=== PATIENT | male | born 1960 | race Caucasian/White ===

== ENCOUNTER → 2016-11-10 | Outpatient (CLI) | payer OTHER, SELFPAY ==
[~2016-11-10] MED LIST: FISH OIL 10001000 MG PO; IMDUR ER TAB 3030 MG PO; LIPITOR80 MG PO; LOSARTAN POTASS50 MG PO; METFORMIN HCL500 MG PO; METOPROLOL SUCC25 MG PO; NITROSTAT 0.40.4 MG SL; NORCO 5-325 TA1 EACH PO; OMEPRAZOLE40 MG PO; TRAZODONE HCL50 MG PO; TRICOR 145 MG145 MG PO; ZANTAC150 MG PO
== END ==
LOC: US 08:59
DX: R79.89 Other specified abnormal findings of blood chemistry (principal); K76.0 Fatty (change of) liver, not elsewhere classified
CPT/HCPCS: 76705

== ENCOUNTER 2021-08-03 01:54 | Inpatient (IN) | payer OTHER ==
[~2021-08-03] VITALS: Ht 180.3 cm; Wt 86.2 kg
[~2021-08-03 01:54] MED LIST changes: +COZAAR50 MG PO; +ECOTRIN81 MG PO; +GLUCOTROL5 MG PO; +LANTUS100 UNIT/1 SL; +LOPRESSOR 25 MG25 MG PO; +MOBIC7.5 MG PO; +NIACIN ER500 MG PO; +OMEPRAZOLE20 M1 PO; +PLAVIX 75 MG TA75 MG PO; +VASCEPA1 GM PO
[2021-08-03 02:20] LABS: HEMOGLOBIN 14.1 gm/dl (14.0-17.5); RED BLOOD COUNT 4.45 M/UL (4.20-5.50); WHITE BLOOD COUNT 12.9 K/UL (4.5-11.0)
[2021-08-03 02:44] LABS: BUN/CREATININE RATIO 13 (0-10)
[2021-08-03] MEDS ORDERED: ATORVASTATIN CA80 MG PO (07:52)
[2021-08-03] MEDS ORDERED: FENOFIBRATE160 MG PO (07:52)
[2021-08-03] MEDS ORDERED: METFORMIN HCL500 M2 PO (07:57)
[2021-08-03] MEDS ORDERED: MIRTAZAPINE7.5 MG PO ×2 (08:38→08:42)
[2021-08-03] MEDS ORDERED: AUGMENTIN 875-1 EACH PO ×2 (08:38→08:39)
[2021-08-03] MEDS ORDERED: PIOGLITAZONE HC45 MG PO (11:50)
[2021-08-03] MEDS ORDERED: TIZANIDINE HCL2 MG PO (11:51)
[2021-08-03] MEDS ORDERED: FARXIGA10 MG PO (11:53)
[2021-08-04 08:15] LABS: BUN/CREATININE RATIO 15 (0-10)
[2021-08-04 08:25] LABS: HEMOGLOBIN 13.4 gm/dl (14.0-17.5); RED BLOOD COUNT 4.34 M/UL (4.20-5.50); WHITE BLOOD COUNT 14.1 K/UL (4.5-11.0)
== END 2021-08-04 17:44 | disposition home or self-care (01) | DRG 440 ==
LOC: ER1 01:54 → M/S 08:51 → CDU 08:51 → M/S 19:01
PROVIDERS: Physician Assistant Medical; ADMIT Internal Medicine
DX: K85.90 Acute pancreatitis without necrosis or infection, unspecified (principal); I25.10 Atherosclerotic heart disease of native coronary artery without angina pectoris; Z20.822 Contact with and (suspected) exposure to COVID-19; E11.9 Type 2 diabetes mellitus without complications; E78.5 Hyperlipidemia, unspecified; I11.9 Hypertensive heart disease without heart failure; K52.9 Noninfective gastroenteritis and colitis, unspecified; K52.89 Other specified noninfective gastroenteritis and colitis; Z79.82 Long term (current) use of aspirin; Z79.4 Long term (current) use of insulin; Z90.49 Acquired absence of other specified parts of digestive tract; Z82.49 Family history of ischemic heart disease and other diseases of the circulatory system; Z80.0 Family history of malignant neoplasm of digestive organs; Z95.5 Presence of coronary angioplasty implant and graft
CPT/HCPCS: 36415; 71045; 80048; 80053; 80061; 82550; 82553; 82962; 83690; 83735; 83874; 84484; 85025; 85027; 93005; 96374; 99285; J2270; J7030; Q9967; U0002